=== PATIENT | male | born 1995 | race Two or more races ===

== ENCOUNTER 2023-05-22 20:43 | Emergency (ER) | payer OTHER ==
--- NOTE | 2023-05-22 21:56 | XRAY Report ---
PROCEDURE: Ankle 3 View RT INDICATIONS: ROLLED/PAIN/TENDERNESS/SWELLING R ANKLE TECHNIQUE: 3 views of the ankle were acquired. COMPARISON: None. FINDINGS: Bones: Small avulsion fracture fragment is seen adjacent to the lateral malleolus. Ankle mortise appe ars maintained. Soft tissues: Significant soft tissue swelling the anterolateral ankle. IMPRESSION: Small avulsion fracture fragment adjacent to lateral malleolus. Significant soft tissue swelling the anterolateral ankle, suggesting ligamentous injury. If there is high concern for further derangement, consider MRI evaluation. Reviewed by: Colin Hameed MD on 05/22/2023 9:55 PM PDT Approved by: Colin Hameed MD on 05/22/2023 9:55 PM PDT Station ID: [id number]
[2023-05-22] MEDS ORDERED: HYDROcod/ACETAM 5/325 MG TABLET PO STA (22:00)
[2023-05-22] MEDS ORDERED: HYDROcod/ACET 5/325 Prepack 4 PO STA (22:17)
--- NOTE | 2023-05-22 22:23 | ED Physician Documentation ---
History of Present Illness - Stated complaint Stated Complaint: R ANKLE INJ - Chief complaint Chief Complaint: Ext Problem - Additonal information Additional information: Patient 27-year-old male, with right ankle injury. Twisted ankle earlier today at work. DeniesPrevious injury to the same ankle. Review of Systems Constitutional: denies: Fever Eyes: denies: Loss of vision Ears: denies: Loss of hearing Nose: denies: Rhinorrhea / runny nose Throat: denies: Dental pain / toothache Cardiac: denies: Chest pain / pressure Respiratory: denies: Dyspnea GI: denies: Abdominal Pain : denies: Dysuria PD PAST MEDICAL HISTORY - Past Surgical History Past Surgical History: Yes HEENT: Other - Present Medications Home Medications: Ambulatory Orders Medication Instructions Recorded Confirmed Amoxicillin 2 tab PO DAILY #20 cap 05/13/23 HYDROcod/ACETAM 5/325 [[place] 5/325] 1 tab PO Q6HR #20 tab 05/22/23 - Allergies Allergies/Adverse Reactions: Allergies Allergy/AdvReac Type Severity Reaction Status Date / Time No Known Drug Allergies Allergy Verified 05/22/23 20:52 - Social History Does the pt smoke?: No Smoking Status: Never smoker Does the pt drink ETOH?: No Does the pt have substance abuse?: No - Immunizations Immunizations are current?: Yes - POLST Patient has POLST: No PD ED PE NORMAL - General General: Alert and oriented X 3 - HEENT HEENT: Atraumatic - Extremities Extremities: Other (Significant soft tissue swelling to the lateral aspect of the right ankle. DP PT pulses palpable. Normal capillary refill in the affected appendage.) Results - Vitals Vitals: Vital Signs - 24 hr 05/22/23 20:44 Temperature 37.1 C Heart Rate 73 Respiratory 18 Rate Blood Pressure 133/79 H O2 Saturation 99 Oxygen O2 Source Room air PD Medical Decision Making - ED course Complexity details: reviewed results, d/w patient ED course: Patient 27-year-old male with right ankle injury. Subsequently identified as having avulsion fracture to the right ankle. Neurovascularly intact here in the emergency department. Given medication for pain control. Splint placed. Provided with crutches. Provided with follow-up information for local area orthopedist or encouraged [place] Clear return precautions given. Departure - Departure Disposition: 01 Home, Self Care Clinical Impression: Avulsion fracture of lateral malleolus Qualifiers: Encounter type: initial encounter Fracture type: closed Laterality: right Qualified Code(s): S82.61XA - Displaced fracture of lateral malleolus of right fibula, initial encounter for closed fracture Instructions: ED Boot Aircast Walker, ED Fx Lower Ext Follow-Up: Toyn Cotton MD [Provider Admit Priv/Credential] - Prescriptions: HYDROcod/ACETAM /325 [[place] 5/325] 1 tab PO Q6HR #20 tab Comments: Thank you for allowing us to care for you today [facility]. Today in the emergency department you were diagnosed with a fracture to your right ankle. Specifically your diagnosis is an avulsion fracture to your right lateral malleolus. I like you to continue to use the splint and crutches provided here in the emergency department until cleared by orthopedics. I have written a prescription for narcotic pain medication, please use these only as directed. Please be aware that these medications are both sedating and habit-forming. They should not be used if you are operating motor vehicle, using of a machinery or the sole director of golf of young children. It is important for you to follow-up with an vocational services specialist. Attached is contact information for local area orthopedist. Alternatively please follow[place]. I strongly recommend regular use of ice packs as well as keeping your lower extremity elevated above the level of the heart. This is an excellent strategy to decrease swelling and thereby decrease pain. If it anytime you develop any new or worsening symptoms please not hesitate to return.
[2023-05-22 22:47] VITALS: BP 137/75; O2SAT 100
== END 2023-05-22 22:40 | disposition home or self-care (01) ==
LOC: ED 20:43
DX: S82.61XA Displaced fracture of lateral malleolus of right fibula, initial encounter for closed fracture (principal); X50.1XXA Overexertion from prolonged static or awkward postures, initial encounter; Y93.01 Activity, walking, marching and hiking; Y92.138 Other place on military base as the place of occurrence of the external cause; Y99.0 Civilian activity done for income or pay
CPT/HCPCS: 73610; 99283; A9270

== ENCOUNTER 2023-10-27 02:44 | Emergency (ER) | payer OTHER ==
[2023-10-27] MEDS: MAG HYDROX/AL HYDROX/SIMETH 30 ML UDC PO STA (03:31)
[2023-10-27] MEDS: DEXAMETHASONE 10 MG/ML VIAL IM STA (03:31)
[2023-10-27] MEDS: LIDOCAINE VISCOUS 2% 15 ML ORAL SYRINGE MM STA (03:31)
[2023-10-27 03:37] LABS: INFECTIOUS MONONUCLEOSIS NEGATIVE (Negative)
[2023-10-27] MEDS: KETOROLAC 60 MG/2 ML VIAL IM STA (03:37)
--- NOTE | 2023-10-27 03:57 | ED Physician Documentation ---
PD HPI HEENT - Stated complaint Stated Complaint: COUGH,SORE THROAT - Chief complaint Chief Complaint: Heent - History obtained from History obtained from: Patient - Additional information Additional information: The pt comes to the ED with CC of ST, rhinorrhea, cough with occasional sputum, and aches for the past 2 weeks. He has been seen at walk-in clinic with neg strep and covid tests. The pt denies any new or worsening sx, and just wants to make sure nothing else worse is wrong. No SOB. No CP. No abdominal sx. PD PAST MEDICAL HISTORY - Past Medical History Past Medical History: No - Past Surgical History Past Surgical History: Yes HEENT: Other - Present Medications Home Medications: Ambulatory Orders Medication Instructions Recorded Confirmed HYDROcod/ACETAM 5/325 [[place] 5/325] 1 - 2 tablet PO Q6H PRN #14 tablet 10/27/23 Polymyxin B/Trimeth Ophth Drop 1 drops EACHEYE DAILY 10/27/23 10/27/23 [Polytrim Ophth Drops] predniSONE [Deltasone] 60 mg PO DAILY 5 Days #15 tablet 10/27/23 - Allergies Allergies/Adverse Reactions: Allergies Allergy/AdvReac Type Severity Reaction Status Date / Time No Known Drug Allergies Allergy Verified 10/27/23 02:57 - Social History Does the pt smoke?: No Smoking Status: Never smoker Does the pt drink ETOH?: No Does the pt have substance abuse?: No - Immunizations Immunizations are current?: Yes - POLST Patient has POLST: No PD ED PE NORMAL - Vitals Vital signs reviewed: Yes - General General: Alert and oriented X 3, No acute distress, Well developed/nourished - HEENT HEENT: Atraumatic, PERRL, EOMI, Moist mucous membranes, Other (Clear rhinorrhea, congestion.) - Neck Neck: Supple, no meningeal sign - Cardiac Cardiac: RRR, No murmur - Respiratory Respiratory: No respiratory distress, Clear bilaterally - Abdomen Abdomen: Normal bowel sounds, Soft, Non tender, Non distended - Derm Derm: Normal color, Warm and dry, No rash - Extremities Extremities: No deformity, No edema - Neuro Neuro: Alert and oriented X 3 - Psych Psych: Normal mood, Normal affect Results - Vitals Vitals: Oxygen O2 Source Room air - Labs Labs: Laboratory Tests 10/27/23 10/27/23 03:05 03:25 Nasal Adenovirus (PCR) NOT DETECTED Nasal B. parapertussis DNA (PCR) NOT DETECTED Nasal Coronavir 229E PCR NOT DETECTED Nasal Coronavir HKU1 PCR NOT DETECTED Nasal Coronavir NL63 PCR NOT DETECTED Nasal Coronavir OC43 PCR NOT DETECTED Nasal Enterovir/Rhinovir PCR NOT DETECTED Nasal Influenza B PCR NOT DETECTED Nasal Influenza A PCR NOT DETECTED Nasal Parainfluen 1 PCR NOT DETECTED Nasal Parainfluen 2 PCR NOT DETECTED Nasal Parainfluen 3 PCR NOT DETECTED Nasal Parainfluen 4 PCR NOT DETECTED Nasal RSV (PCR) NOT DETECTED Nasal B.pertussis DNA PCR NOT DETECTED Nasal C.pneumoniae (PCR) NOT DETECTED Andrez Human Metapneumo PCR NOT DETECTED Nasal M.pneumoniae (PCR) NOT DETECTED Nasal SARS-CoV-2 (PCR) NOT DETECTED Infectious Obion Assay NEGATIVE PD Medical Decision Making - ED course Complexity details: reviewed results, re-evaluated patient, considered differential, d/w patient ED course: The pt was worked up with mono test and resp PCR panel, both of which were negative. I d/w him that he most likely has picked up one of the many other viruses going around, but there is no sign of bacterial infection or other serious illness, and I expect this to pass on its own without incident. We have discussed symptomatic management at home, as well as the usual indications for return. Departure - Departure Disposition: 01 Home, Self Care Clinical Impression: Upper respiratory tract infection Qualifiers: URI type: unspecified viral URI Qualified Code(s): J06.9 - Acute upper respiratory infection, unspecified Condition: Stable Instructions: ED Viral Syndrome Prescriptions: predniSONE [Deltasone] 60 mg PO DAILY 5 Days #15 tablet HYDROcod/ACETAM 5/325 [[place] 5/325] 1 - 2 tablet PO Q6H PRN #14 tablet PRN Reason: Pain Comments: Your monotest was negative. You have already tested negative for strep. Your viral panel is pending at this time and often takes a few hours to come back. As such, we will let you go home but we will call you if there are any significant positive results. If you would like to check for your own results, you may also go to our hospital website at [email or web address], click on the "my [facility]" tab and sent for the patient portal. In this way you can look up your own results as well. You must certainly have when the many viruses that are going around right now and may have caught 2 viruses [id number] to extend the length of your illness. Ultimately, viral illnesses do go away on their own and ultimately, your body will get rid of the sickness and you will get better. In general, viral illnesses last anywhere from a few days to a couple of weeks. You may use ibuprofen and Tylenol as needed for discomforts. I have also prescribed a steroid course and a course of pain medication as needed for your headache and sore throat. If you take the pain medicine that has been prescribed, please make sure you separate it out from any doses of Tylenol by at least 4 hours, as the prescribed medicine also contains some T ylenol.A note has been provided for work for you. As far as your eyes, you should continue the drops that have been prescribed. Your prescriptions have been electronically transmitted to the [facility] pharmacy in [place]. Please pick them up later this morning to have on hand. Please also be sure that you drink plenty of water to help yourself stay hydrated. Forms: PCP List, Activity restrictions Discharge Date/Time: 10/27/23 04:17
[2023-10-27 04:03] LABS: B. PARAPERTUSSIS- RESP PCR PAN NOT DETECTED; B. PERTUSSIS- RESP PCR PANEL NOT DETECTED; C. PNEUMONIAE- RESP PCR PANEL NOT DETECTED; CORONAVIRUS 229E-RESP PCR NOT DETECTED; CORONAVIRUS HKU1-RESP PCR NOT DETECTED; CORONAVIRUS NL63-RESP PCR NOT DETECTED; CORONAVIRUS OC43-RESP PCR NOT DETECTED; HUMAN METAPNEUMOVIRUS NOT DETECTED; INFLUENZA A- RESP PCR PANEL NOT DETECTED; INFLUENZA B - RESP PCR PANEL NOT DETECTED; M. PNEUMONIAE- RESP PCR PANEL NOT DETECTED; PARAINFLUENZA VIRUS 1 NOT DETECTED; PARAINFLUENZA VIRUS 2 NOT DETECTED; PARAINFLUENZA VIRUS 3 NOT DETECTED; PARAINFLUENZA VIRUS 4 NOT DETECTED; RHINOVIRUS/ENTEROVIRUS NOT DETECTED; RSV- RESP PCR PANEL NOT DETECTED; SARS-CoV-2 -RESP PCR PANEL NOT DETECTED
[2023-10-27 04:26] VITALS: BP 130/81; O2SAT 100
== END 2023-10-27 04:17 | disposition home or self-care (01) ==
LOC: ED 02:44
DX: J06.9 Acute upper respiratory infection, unspecified (principal)
CPT/HCPCS: 86308; 87633; 96372; 99283; A9270

== ENCOUNTER 2024-01-06 12:15 | Outpatient (CLI) | payer OTHER ==
--- NOTE | 2024-01-07 00:09 | XRAY Report ---
PROCEDURE: Lumbar Spine 2-3V INDICATIONS: STRAIN OF MUSCLE, FASCIA AND TENDON OF LOWER BACK TECHNIQUE: 3 view(s) of the lumbar spine were acquired. COMPARISON: None. FINDINGS: Bones: Vertebral body height and alignment is maintained. No suspicious bony lesions. Soft tissues: Overlying bowel gas pattern is normal. No suspicious soft tissue calcifications. IMPRESSION: Unremarkable lumbar spine radiographs Reviewed by: Deepak Miller MD on 01/06/2024 11:08 PM [email or web address] Approved by: Deepak Miller MD on 01/06/2024 11:08 PM AKDT Station ID: [id number]
== END 2024-01-06 12:30 | disposition home or self-care (01) ==
LOC: DI.N 12:15
PROVIDERS: ATTEND Nurse Practitioner
DX: S39.012A Strain of muscle, fascia and tendon of lower back, initial encounter (principal)

== ENCOUNTER 2025-05-28 03:32 | Inpatient (IN) ==
[2025-05-28] MEDS: KETOROLAC 30 MG/ML VIAL IVP STA (03:54)
--- NOTE | 2025-05-28 03:56 | ED Physician Documentation ---
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 He indicates he was at work when he began to experience cramping abdominal pain in the lower portion of his abdomen the pain became severe and the patient called 911. He is given 50 mics of fentanyl and route to the hospital. He has had a similar episode of pain not as bad as this about 2 weeks ago. He was seen at [facility] then and diagnosed with constipation. He states that he took some laxative and stool softener and had improvement.He is complaining of pain going over bumps in the ambulance and with movement. He has poor localization of the pain with shifting of the pain. Currently his pain is epigastric. It has been in the right lower quadrant right upper quadrant and now epigastric. Tod Coma Scale Assess Eye opening: Spontaneous Verbal response: Oriented Motor response: Obeys Commands Total score: 15 Review of Systems Patient denies any fever chills sweats cough sputum production or change in his urination. He has not had a bowel movement in 2 days. Meds/Allgy Home Medications Ambulatory Orders Medication Instructions Recorded Confirmed No Known Home Medications 11/28/2405/18 Allergies Allergies Allergy/AdvReac Type Severity Reaction Status Date / Time No Known Drug Allergies Allergy Verified 05/28/25 03:44 PFSH Active Problems All Active Problems (Updated 05/28/25 @ 08:18 by Heriberto Fung MD) Constipation (Chronic) Abdominal pain (Acute) Intestinal malrotation (Acute) Medical History Medical History (Updated 05/28/25 @ 08:18 by Heriberto Fung MD) Cyst in neck at removed 04/13/25 Surgical History Surgical History (Updated 05/28/25 @ 08:12 by Trev Ventura RN) Hx of tonsillectomy Hx of tonsillectomy Social History Social History Do you vape?: No Do you feel safe in your home environment?: Yes History of physical, verbal, emotional, or financial abuse?: No POLST Patient has POLST: No Exam Exam Vital Signs: Vital Signs x48h Temp Pulse Resp BP Pulse Ox 05/28/25 07:45 72 149/85 H 99 05/28/25 05:44 57 L 131/86 H 98 05/28/25 03:32 36.6 C 79 18 146/89 H 100 29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 During the initial evaluation the patient begins to have some improvement in his pain. Vital signs show hypertension with a blood pressure 146/89 the remainder of the vital signs are normal. Constitutional average body habitus, no limitations and alert 29-year-old male who appears to be in pain HENMT normocephalic and head/scalp atraumatic Eyes PERRL and EOMs intact bilaterally Neck/C-Spine visual inspection normal and trachea midline Respiratory breath sounds equal bilaterally, normal respiratory effort and clear to auscultation bilaterally Cardiovascular normal heart rate noted, regular rhythm noted and no murmur Gastrointestinal There is diffuse tenderness to the abdomen with poor localization. Deep palpation in the right lower quadrant without specific findings right upper quadrant with acute findings that resolved. 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 instructor II-XII intact, no movement abnormality noted and no focal motor deficit noted Psychiatry mental status grossly normal and oriented x3 Skin skin color normal and no rash Results Vitals Vitals: Vital Signs - 24 hr 05/28/25 03:32 05/28/25 03:54 05/28/25 04:34 Temperature 36.6 C Temperature Source Temporal Artery Scan Pulse Rate 79 Respiratory Rate 18 Blood Pressure 146/89 H O2 Saturation 100 O2 Source Room air Pain Intensity 8 10 8 05/28/25 05:44 05/28/25 06:33 05/28/25 06:54 Temperature Temperature Source Pulse Rate 57 L Respiratory Rate Blood Pressure 131/86 H O2 Saturation 98 O2 Source Room air Pain Intensity 0 0 8 05/28/25 07:45 05/28/25 07:47 Temperature Temperature Source Pulse Rate 72 Respiratory Rate Blood Pressure 149/85 H O2 Saturation 99 O2 Source Room air Pain Intensity 5 5 Oxygen O2 Source Room air Labs Labs: Laboratory Tests 05/28/25 05/28/25 03:55 06:46 WBC 7.0 RBC 5.29 Hgb 15.4 Hct 46.0 MCV 87.0 MCH 29.1 MCHC 33.5 RDW 12.4 Plt Count 182 MPV 11.2 Neut # (Auto) 3.9 Lymph # (Auto) 2.6 Nye # (Auto) 0.4 Eos # (Auto) 0.1 Baso # (Auto) 0.0 Absolute Nucleated RBC 0.00 Nucleated RBC % 0.0 Sodium 138 Potassium 3.0 L Chloride 106 Carbon Dioxide 18 L Anion Gap 14.0 H BUN 9 Creatinine 1.0 Estimated GFR (MDRD) 90 Glucose 134 H Lactic Acid 0.9 Calcium 9.6 Total Bilirubin 0.7 AST 14 ALT 9 L Alkaline Phosphatase 71 Total Protein 7.8 Albumin 4.5 Globulin 3.3 Albumin/Globulin Ratio 1.4 Lipase 16 Procedures Bedside sono Bedside sono by EMP: With use of POCUS the gallbladder is imaged there are no obvious shadowing stone s the gallbladder area is mildly tender to sonographic palpation at the time of examination the patient indicates his pain is waning. Examination of both kidneys is without evidence of hydronephrosis and they are sonographically nontender PD Medical Decision Making ED course Complexity details: reviewed old records, reviewed results, re-evaluated patient, considered differential and d/w patient Reviewed Lab Results: We reviewed complete blood count showing a normal white blood cell count normal hemoglobin hematocrit and platelets normal differential normal indices chemistries show a serum potassium low at 3.0 kidney and liver function are otherwise normal. These laboratory studies do not contribute to a specific diagnosis other than hypokalemia. Unrelated to the patient's abdominal pain. ED course: Lloyd Cooper presented to our emergency department with severe abdominal pain. He did get some relief with the use of Toradol but this was short-lived and he eventually was given a dose of Dilaudid which resolved his pain. He has had a prior episode of pain not as bad as this and he was evaluated at [facility] with a diagnosis of constipation. At that time he had had an issue with bleeding. Tonight he presents with severe pain and CT scan is concerning for interstitial malrotation. I am not familiar with this condition but it can lead to volvulus and I have contacted our surgeon here regarding the management of this now asymptomatic patient.The patient's symptoms return and he is given additional Dilaudid. Our surgeon Dr. Ene Silva is consulted in the case comes to the emergency department evaluate the patient and makes a plan for admission of the patient to the hospital with a small bowel follow-through and potential surgical intervention. Discharge Plan Discharge Patient Disposition: 66 [facility] DC/Xfer Condition: Fair Clinical Impression: Intestinal malrotation Abdominal pain Qualifiers: Abdominal location: multiple sites Qualified Code(s): R10.85 - Abdominal pain of multiple sites Constipation Qualifiers: Constipation type: unspecified constipation type Qualified Code(s): K59.00 - Constipation, unspecified Prescriptions: No Action No Known Home Medications Print Language: [place]i
[2025-05-28 04:00] LABS: HCT - HEMATOCRIT 46.0 % (42.0-52.0); HGB - HEMOGLOBIN 15.4 g/dL (14.0-18.0); MEAN PLATELET VOLUME 11.2 fL (7.4-11.4); NRBC ABSOLUTE COUNT (AUTO) 0.00 x10^3/uL; NUCLEATED RED BLOOD CELLS AUTO 0.0 /100WBC; PLT - PLATELET COUNT 182 10^3/uL (130-450); RED CELL DISTRIBUTION WIDTH 12.4 % (12.0-15.0)
[2025-05-28 04:19] LABS: ALT ALANINE AMINOTRANSFERASE 9.0 IU/L (10-60); AST ASPARTATE AMINOTRANSFERASE 14.0 IU/L (10-42); BUN - BLOOD UREA NITROGEN 9.0 mg/dL (6-20); CARBON DIOXIDE - CO2 18.0 mmol/L (21-32); CREATININE 1.0 mg/dL (0.6-1.3); GFR - MDRD 90.0 (>89)
--- OUTSIDE RECORDS SUMMARY | 2025-05-28 04:25 | EXTERNAL MEDICAL SUMMARY RPT | Continuity of Care Document ---
Author Organization [facility] Address [address] [place] [id number] Phone Care Team Providers Care Corporate Librarian Name Role Phone Unavailable Unavailable [email or web address] Unavailable Unavailable Problems date description facility 2025-05-11 00:00 [facility] Procedures date description facility 2025-05-11 00:00 CT abdomen pelvis w con [facility] Results/Labs test date facility value unit notes Result panel 1 Specimen collection (procedure) (no date) [facility] (missing) (missing) (missing) Result panel 2 Specimen collection (procedure) (no date) [facility] (missing) (missing) (missing) Result panel 3 Specimen collection (procedure) (no date) [facility] (missing) (missing) (missing) Result panel 4 Specimen collection (procedure) (no date) [facility] (missing) (missing) (missing) Result panel 5 Specimen collection (procedure) (no date) [facility] (missing) (missing) (missing) Result panel 6 Specimen collection (procedure) (no date) [facility] (missing) (missing) (missing) Result panel 7 Specimen collection (procedure) (no date) [facility] (missing) (missing) (missing) Result panel 8 Specimen collection (procedure) (no date) [facility] (missing) (missing) (missing) Result panel 9 Specimen collection (procedure) (no date) [facility] (missing) (missing) (missing) Result panel 10 Specimen collection (procedure) (no date) [facility] (missing) (missing) (missing) Result panel 11 Specimen collection (procedure) (no date) [facility] (missing) (missing) (missing) Result panel 12 Specimen collection (procedure) (no date) [facility] (missing) (missing) (missing) Result panel 13 Specimen collection (procedure) (no date) [facility] (missing) (missing) (missing) Result panel 14 Specimen collection (procedure) (no date) [facility] (missing) (missing) (missing) Result panel 15 Specimen collection (procedure) (no date) [facility] (missing) (missing) (missing) Result panel 16 Specimen collection (procedure) (no date) [facility] (missing) (missing) (missing) Result panel 17 Specimen collection (procedure) (no date) [facility] (missing) (missing) (missing) Result panel 18 Specimen collection (procedure) (no date) [facility] (missing) (missing) (missing) Result panel 19 Specimen collection (procedure) (no date) [facility] (missing) (missing) (missing) Result panel 20 Specimen collection (procedure) (no date) [facility] (missing) (missing) (missing) Result panel 21 Specimen collection (procedure) (no date) [facility] (missing) (missing) (missing) Result panel 22 Specimen collection (procedure) (no date) [facility] (missing) (missing) (missing) Result panel 23 Specimen collection (procedure) (no date) [facility] (missing) (missing) (missing) Result panel 24 Specimen collection (procedure) (no date) [facility] (missing) (missing) (missing) Result panel 25 Specimen collection (procedure) (no date) [facility] (missing) (missing) (missing) Result panel 26 Specimen collection (procedure) (no date) [facility] (missing) (missing) (missing) Result panel 27 Specimen collection (procedure) (no date) [facility] (missing) (missing) (missing) Result panel 28 Specimen collection (procedure) (no date) [facility] (missing) (missing) (missing) Result panel 29 Specimen collection (procedure) (no date) [facility] (missing) (missing) (missing) Result panel 30 Specimen collection (procedure) (no date) [facility] (missing) (missing) (missing) Result panel 31 Specimen collection (procedure) (no date) [facility] (missing) (missing) (missing) Result panel 32 Specimen collection (procedure) (no date) [facility] (missing) (missing) (missing) Result panel 33 Specimen collection (procedure) (no date) [facility] (missing) (missing) (missing) Result panel 34 Specimen collection (procedure) (no date) [facility] (missing) (missing) (missing) Result panel 35 Specimen collection (procedure) (no date) [facility] (missing) (missing) (missing) Result panel 36 Specimen collection (procedure) (no date) [facility] (missing) (missing) (missing) Result panel 37 Specimen collection (procedure) (no date) [facility] (missing) (missing) (missing) Result panel 38 Specimen collection (procedure) (no date) [facility] (missing) (missing) (missing) Result panel 39 Specimen collection (procedure) (no date) [facility] (missing) (missing) (missing) Result panel 40 Specimen collection (procedure) (no date) [facility] (missing) (missing) (missing) Result panel 41 Specimen collection (procedure) (no date) [facility] (missing) (missing) (missing) Result panel 42 Specimen collection (procedure) (no date) [facility] (missing) (missing) (missing) Result panel 43 Specimen collection (procedure) (no date) [facility] (missing) (missing) (missing) Result panel 44 Specimen collection (procedure) (no date) [facility] (missing) (missing) (missing) Result panel 45 Specimen collection (procedure) (no date) [facility] (missing) (missing) (missing) Result panel 46 Specimen collection (procedure) (no date) [facility] (missing) (missing) (missing) Result panel 47 Specimen collection (procedure) (no date) [facility] (missing) (missing) (missing) Result panel 48 Specimen collection (procedure) (no date) [facility] (missing) (missing) (missing) Result panel 49 Specimen collection (procedure) (no date) [facility] (missing) (missing) (missing) Result panel 50 Specimen collection (procedure) (no date) [facility] (missing) (missing) (missing) Result panel 51 Specimen collection (procedure) (no date) [facility] (missing) (missing) (missing) Result panel 52 Specimen collection (procedure) (no date) [facility] (missing) (missing) (missing) Result panel 53 Specimen collection (procedure) (no date) [facility] (missing) (missing) (missing) Result panel 54 Specimen collection (procedure) (no date) [facility] (missing) (missing) (missing) Result panel 55 Specimen collection (procedure) (no date) [facility] (missing) (missing) (missing) Result panel 56 Specimen collection (procedure) (no date) [facility] (missing) (missing) (missing) Result panel 57 Specimen collection (procedure) (no date) [facility] (missing) (missing) (missing) Result panel 58 Specimen collection (procedure) (no date) [facility] (missing) (missing) (missing) Result panel 59 Specimen collection (procedure) (no date) [facility] (missing) (missing) (missing) Result panel 60 Specimen collection (procedure) (no date) [facility] (missing) (missing) (missing) Result panel 61 Specimen collection (procedure) (no date) [facility] (missing) (missing) (missing) Result panel 62 Specimen collection (procedure) (no date) [facility] (missing) (missing) (missing) Result panel 63 Specimen collection (procedure) (no date) [facility] (missing) (missing) (missing) Result panel 64 Specimen collection (procedure) (no date) [facility] (missing) (missing) (missing) Result panel 65 Specimen collection (procedure) (no date) [facility] (missing) (missing) (missing) Result panel 66 Specimen collection (procedure) (no date) [facility] (missing) (missing) (missing) Result panel 67 Specimen collection (procedure) (no date) [facility] (missing) (missing) (missing) Result panel 68 Specimen collection (procedure) (no date) [facility] (missing) (missing) (missing) Result panel 69 Specimen collection (procedure) (no date) [facility] (missing) (missing) (missing) Result panel 70 Specimen collection (procedure) (no date) [facility] (missing) (missing) (missing) Result panel 71 Specimen collection (procedure) (no date) [facility] (missing) (missing) (missing) Result panel 72 Specimen collection (procedure) (no date) [facility] (missing) (missing) (missing) Result panel 73 Specimen collection (procedure) (no date) [facility] (missing) (missing) (missing) Result panel 74 Specimen collection (procedure) (no date) [facility] (missing) (missing) (missing) Result panel 75 Specimen collection (procedure) (no date) [facility] (missing) (missing) (missing) Result panel 76 Specimen collection (procedure) (no date) [facility] (missing) (missing) (missing) Result panel 77 Specimen collection (procedure) (no date) [facility] (missing) (missing) (missing) Result panel 78 Specimen collection (procedure) (no date) [facility] (missing) (missing) (missing) Result panel 79 Chloride [Moles/volume] in Serum or Plasma 2025-05-11 09:50:07 [facility] 103 mmol/L ( issing) Result panel 80 Carbon dioxide, total [Moles/volume] in Serum or Plasma 2025-05-11 09:50:07 [facility] 25 mmol/L ([facility]) Result panel 81 Urea nitrogen [Mass/volume] in Serum or Plasma 2025-05-11 09:50:07 [facility] 16 mg/dL ([facility]) Result panel 82 Creatinine [Mass/volume] in Serum or Plasma 2025-05-11 09:50:07 [facility] 1.03 mg/dL ([facility]) Result panel 83 Glomerular filtration rate (GFR) estimation 2025-05-11 09:50:07 [facility] > 60 mL/min (missing) (missing) Result panel 84 BUN/creatinine ratio 2025-05-11 09:50:07 [facility] 15. 5 (missing) (missing) Result panel 85 Glucose [Mass/volume] in Serum or Plasma 2025-05-11 09:50:07 [facility] 121 mg/dL ([facility]) Result panel 86 Calcium [Mass/volume] in Serum or Plasma 2025-05-11 09:50:07 [facility] 9.2 mg/dL ([facility]) Result panel 87 Bilirubin.total [Mass/volume ] in Serum or Plasma 2025-05-11 09:50:07 [facility] 1.1 mg/dL (missing) Result panel 88 Aspartate aminotransferase [Enzymatic activity/volume] in Serum or Plasma 2025-05-11 09:50:07 [facility] 27 IU/L ([facility]) Result panel 89 Alanine aminotransferase [Enzymatic activity/volume] in Serum or Plasma 2025-05-11 09:50:07 [facility] 18 IU/L ([facility]) Result panel 90 Alkaline phosphatase [Enzyma tic activity/volume] in Serum or Plasma 2025-05-11 09:50:07 [facility] 70 U/L ([facility]) Result panel 91 Protein total ser/plas 2025-05-11 09:50:07 [facility] 8 .6 g/dL (missing) Result panel 92 Albumin [Mass/volume] in Ser um or Plasma 2025-05-11 09:50:07 [facility] 4.8 g/dL ([facility] ing) Result panel 93 Globulin [Mass/volume] in Serum by calculation 2025-05-11 09:50:07 [facility] 3.8 g/dL (missing) Result panel 94 Albumin/Globulin [Mass Ratio] in Serum or Plasma 2025-05-11 09:50:07 [facility] 1.3 ([facility]) (missing) Result panel 95 Lipase [Enzymatic activity/volume] in Serum or Plasma 2025-05-11 09:50:07 [facility] 48 U/L ([facility]) Result panel 96 White blood cell count 2025-05-11 09:50:07 [facility] 8 .2 X10^3/uL (missing) Result panel 97 Red blood cell count 2025-05-11 09:50:07 [facility] 5.1 6 X10^6/uL (missing) Result panel 98 Hemoglobin 2025-05-11 09:50:07 [facility] 15.2 g/d L (missing) Result panel 99 Hematocrit 2025-05-11 09:50:07 [facility] 44.5 % (missing) Result panel 100 MCV (mean corpuscular volume ) determination 2025-05-11 09:50:07 [facility] 86.2 fL (mis sing) Result panel 101 Mean corpuscular hemoglobin (MCH) determination 2025-05-11 09:50:07 [facility] 29.5 PG (missing) Result panel 102 Mean corpuscular hemoglobin concentration (MCHC) determination 2025-05-11 09:50:07 [facility] 34.3 % (mis sing) Result panel 103 Red cell distribution width determination 2025-05-11 09:50:07 [facility] 13.3 % (mis sing) Result panel 104 Platelet count 2025-05-11 09:50:07 [facility] 174 X10^3/uL (missing) Result panel 105 Automated neutrophil % 2025-05-11 09:50:07 [facility] 7 1.9 % (missing) Result panel 106 Automated lymphocyte % 2025-05-11 09:50:07 [facility] 2 1.7 % (missing) Result panel 107 Automated monocyte % 2025-05-11 09:50:07 [facility] 5.5 % (missing) Result panel 108 Automated eosinophil % 2025-05-11 09:50:07 [facility] 0 .5 % (missing) Result panel 109 Automated basophil % 2025-05-11 09:50:07 [facility] 0.4 % (missing) Result panel 110 Absolute neutrophil [facility]25-[facility]-11 [facility] Result panel 111 Absolute lymphocyte count 2025-05-11 09:50:07 [facility] 1800 /uL (missing) Result panel 112 Automated blood monocyte count 2025-05-11 09:50:07 [facility] 400 /uL (missing) Result panel 113 Automated eosinophil count 2025-05-11 09:50[facility]07 [facility] Result panel 114 Automated basophil count 2025-05-11 09:50:07 [facility] 0 /uL (missing) Result panel 115 Sodium [Moles/volume] in Serum or Plasma 2025-05-11 09:50:07 [facility] 140 mmol/L ([facility]) Result panel 116 Potassium [Moles/volume] in Serum or Plasma 2025-05-11 09:50:07 [facility] 3.7 mmol/L ([facility]) Result panel 117 CAT scan report 2025-05-11 10:08 [facility] (missing) ( missing) (missing) Result panel 118 Basophils Absolute Auto 2025-05-11 10:[address] [place] [address] 0 /ul (missing) Eosinophils Absolute Auto 2025-05-11 10:[address] [place] [address] 0 /ul (missing) Basophils Percent Auto 2025-05-11 10:[address] [place] [address] 0.4 % (missing) Eosinophils Percent Auto 2025-05-11 10:[address] [place] [address] 0. 5 % (missing) Red Cell Distribution Width 2025-05-11 10:[address] [place] [address] 13.3 % (missing) Hemoglobin 2025-05-11 10:[address] [place] [address] 15.2 g/dl (missing) Platelet Count 2025-05-11 10:[address] [place] [address] 174 x1 0 3/ul (missing) Lymphocytes Absolute Auto 2025-05-11 10:[address] [place] [address] 1 800 /ul (missing) Lymphocytes Percent Auto 2025-05-11 10:[address] [place] [address] 21 .7 % (missing) Mean Corpuscular Hemoglobin 2025-05-11 10:[address] [place] [address] 29.5 pg (missing) Mean Corpuscular HGB Conc 2025-05-11 10:[address] [place] [address] 3 4.3 % (missing) Monocytes Absolute Auto 2025-05-11 10:[address] [place] [address] 400 /ul (missing) Hematocrit 2025-05-11 10:[address] [place] [address] 44.5 % (missing) Red Blood Cell Count 2025-05-11 10:[address] [place] [address] 5.16 x10 6/ul (missing) Monocytes Percent Auto 2025-05-11 10:[address] [place] [address] 5.5 % (missing) Neutrophils Absolute Auto 2025-05-11 10:[address] [place] [address] 5 900 /ul (missing) Neutrophils Percent Auto 2025-05-11 10:[address] [place] [address] 71 .9 % (missing) White Blood Cell Count 2025-05-11 10:[address] [place] [address] 8.2 x10 3/ul (missing) Mean Corpuscular Volume 2025-05-11 10:[address] [place] [address] 86. 2 fl (missing) Result panel 119 Estimated Glomerular Filt Rate 2025-05-11 10:[address] [place] [address] > 60 ml/min Reported eGFR is based the CKD-EPI 2020 equation that does not use a race coefficient. An eGFR below 60 mL/min/1.73m2 suggests that some kidney damage has occurred, and indicative of chronic kidney disease if persisting greater than 3 months. An eGFR less than 15 is indicative of kidney failure. Creatinine 2025-05-11 10:[address] [place] [address] 1.03 mg/dl (missing) Bilirubin Total 2025-05-11 10:[address] [place] [address] 1.1 mg/dl (missing) Albumin Globulin Ratio 2025-05-11 10:[address] [place] [address] 1.3 (missing) (missing) Chloride 2025-05-11 10:[address] [place] [address] 103 mmol/l (missing) Glucose 2025-05-11 10:[address] [place] [address] 121 mg/dl (missing) Sodium 2025-05-11 10:[address] [place] [address] 140 mmol/l (missing) BUN Creatinine Ratio 2025-05-11 :[address] [place] [address] 15.5 (missing) (missing) Blood Urea Nitrogen 2025-05-11 10:[address] [place] [address] 16 mg/dl (missing) Alanine Aminotransferase 2025-05-11 10:[address] [place] [address] 18 iu/l (missing) Carbon Dioxide 2025-05-11 10:[address] [place] [address] 25 mmol/l (missing) Aspartate Aminotransferase 2025-05-11 10:[address] [place] [address] 27 iu/l (missing) Potassium 2025-05-11 10:[address] [place] [address] 3.7 mmol/l (missing) Globulin 2025-05-11 10:[address] [place] [address] 3.8 g/dl (missing) Albumin 2025-05-11 10:[address] [place] [address] 4.8 g/dl (missing) Lipase 2025-05-11 10:35 [facility] 48 u/l (missing) Alkaline Phosphatase 2025-05-11 10:35 [facility] 70 u/l (missing) Total Protein 2025-05-11 10:35 [facility] 8.6 g/dl (missing) Calcium 2025-05-11 10:35 [facility] 9.2 mg/dl (missing) Result panel 120 Antibody Screen 2025-05-11 11:02 [facility] NEGATIVE ( missing) (missing) Blood Type 2025-05-11 11:02 [facility] O Positive (miss ing) (missing) Result panel 121 NUCLEATED RED BLOOD CELLS AUTO 2025-05-28 03:55 [facility] 0.0 /100wbc (missing ) BASOPHILS # (AUTO) 2025-05-28 03:[address] [place] [address] 0.0 10 3/ul (missing) NRBC ABSOLUTE COUNT (AUTO) 2025-05-28 03:[address] [place] [address] 0.00 x10 3/ul (missing) EOSINOPHILS # (AUTO) 2025-05-28 03:[address] [place] [address] 0.1 10 3/ul (missing) MONOCYTES # (AUTO) 2025-05-28 03:[address] [place] [address] 0.4 10 3/ul (missing) MEAN PLATELET VOLUME 2025-05-28 03:[address] [place] [address] 11.2 fl (missing) RED CELL DISTRIBUTION WIDTH 2025-05-28 03:[address] [place] [address] 12.4 % (missing) HGB - HEMOGLOBIN 2025-05-28 03:[address] [place] [address] 15.4 g/dl (missing) PLT - PLATELET COUNT 2025-05-28 03:[address] [place] [address] 182 10 3/ul (missing) LYMPHOCYTES # (AUTO) 2025-05-28 03:[address] [place] [address] 2.6 10 3/ul (missing) MEAN CORPUSCULAR HEMOGLOBIN 2025-05-28 03:[address] [place] [address] 29.1 pg (missing) NEUTROPHILS # (AUTO) 2025-05-28 03:[address] [place] [address] 3.9 10 3/ul (missing) MEAN CORPUSCULAR HGB CONC 2025-05-28 03:[address] [place] [address] 3 3.5 g/dl (missing) HCT - HEMATOCRIT 2025-05-28 03:[address] [place] [address] 46.0 % (missing) RED BLOOD COUNT 2025-05-28 03:[address] [place] [address] 5.29 1 0 6/ul (missing) WHITE BLOOD COUNT 2025-05-28 03:55 [facility] 7.0 x10 3/ul (missing) MEAN CORPUSCULAR VOLUME 2025-05-28 03:55 [facility] 87. 0 fl (missing) Social History date description facility Vital Signs date measurement value units 2025-05-11 00:00 BMI 26.2 kg/m2 2025-05-11 00:00 BP_diastolic 72 mmHg 2025-05-11 00:00 BP_systolic 111 mmHg 2025-05-11 00:00 heart_rate 77 /min 2025-05-11 00:00 height_metric 190.5 cm 2025-05-11 00:00 o2_saturation 100 % 2025-05-11 00:00 respiration_rate 16 /min 2025-05-11 00:00 temperature_standard 98.6 F 2025-05-11 00:00 weight_metric 95.25 kg
[2025-05-28] MEDS: HYDROmorphone 1 MG/ML CARPUJECT IVP STA ×2 (04:34→06:54)
[2025-05-28] MEDS: ONDANSETRON 4 MG/2 ML VIAL IVP STA (04:34)
[2025-05-28] MEDS: POTASSIUM CHLOR 10 MEQ/100 ML 10 MEQ/100 ML BAG IV STA (06:34)
--- NOTE | 2025-05-28 08:49 | CT Report ---
PROCEDURE: CT Abdomen/Pelvis W INDICATIONS: abdominal pain severe poor localization no hydro CONTRAST: 100 ML OMNI 300 TECHNIQUE: After the administration of intravenous contrast, a CT scan of the abdomen and pelvis was performed. Images were recorded and evaluated at appropriate window settings. Reformats: coronal and sagittal. For radiation dose reduction, the following was used: automated exposure control, adjustment of mA and/or kV according to patient size. COMPARISON: None. FINDINGS: Image quality: Diagnostic. Lower chest: Unremarkable. Liver: No solid mass. Gallbladder: Unremarkable Biliary tree: No intrahepatic or extrahepatic dilation, accounting for age. Spleen: No splenomegaly. Pancreas: No pancreatic ductal dilation. Adrenals: No adrenal nodule. Kidneys and ureters: No hydronephrosis. No renal cystic lesion which requires follow up. No solid mass. Stomach, bowel and peritoneum: No gastric or small bowel dilation. No abnormal wall thickening. No pathologic free fluid. 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 Appendix is normal. Lymph nodes: No central or retroperitoneal adenopathy. Vessels: No infrarenal aortic aneurysm. Patent portal vein. PELVIS Reproductive organs: Unremarkable. Bladder: No abnormal wall thickening. Pelvic lymph nodes: No pelvic adenopathy by size criteria. Bones: No aggressive osseous abnormality. Other: No significant ventral or inguinal hernia. IMPRESSION: No visualized acute intra-abdominal or pelvic process. The above findings are concordant with preliminary report. Reviewed by: Bing Boo MD on 05/28/2025 8:46 AM PDT Approved by: Bing Boo MD on 05/28/2025 8:46 AM PDT Station ID: [id number]
[2025-05-28] MEDS: LACTATED RINGERS 1,000 ML IV SCH (09:34)
[2025-05-28] MEDS ORDERED: ONDANSETRON 4 MG/2 ML VIAL IVP PRN (09:57)
[2025-05-28] MEDS ORDERED: ACETAMINOPHEN 325 MG TABLET PO PRN (09:57)
[2025-05-28] MEDS ORDERED: KETOROLAC 15 MG/ML VIAL IVP PRN (09:58)
--- NOTE | 2025-05-28 10:13 | HISTORY & PHYSICAL EXAMINATION ---
Chief Complaint Chief Complaint Chief Complaint: I'm having abdominal cramps. History of Present Illness Admitted From Admitted From:: ED History Obtained From Records Reviewed: yes (as available) History obtained from: patient, ED provider, chart History of Present Illness HPI Comment/Other: Lloyd Cooper is a 29 y/o M. 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 He reports acute onset crampy abdominal pain which moves around is abdomen and began at 0130 this morning, while he was at work. The pain became severe and was associated with nausea but no vomiting, prompting the patient to call 911. He received 50 mcg of fentanyl en route to the hospital, and additional narcotics in the ED which controlled his pain. He reports a similar episode of pain about 2 weeks ago at which time he was seen at [facility] and diagnosed with constipation. He states that he took some laxative and stool softener and had improvement of symptioms; he has not continued on a bowel regimen. Workup in the ED reveals moderate constipation and malrotation which is incidental in nature. For this, I am consulted. At the time of my exam, the patient is resting comfortably, aside from some pain in his IV arm with infusion of potassium. He states he has some mild abdominal discomfort, rated 4/10. It is mostly about the right mid abdomen at this moment but patient endorses that pain has moved around during the time it has been present. Prior to two weeks ago, he has never had pain like this. He has no prior abdominal surgeries. Colonoscopy Questionnaire In the last 30 days have you experienced these symptoms? PFSH Active Problems All Active Problems (Updated 05/28/25 @ 10:17 by Elma Bashir MD) Constipation (Chronic) Abdominal pain (Acute) Intestinal malrotation (Acute) Surgical History Surgical History (Updated 05/28/25 @ 10:17 by Elma Bashir MD) H/O thyroglossal duct cyst excised on above date Hx of tonsillectomy Family History Family History (Updated 05/28/25 @ 10:17 by Elma Bashir MD) Maternal grandmother Cancer Social History Social History (Updated 05/28/25 @ 10:17 by Elma Bashir MD) Smoking Status: Never smoker Do you vape?: No Marital Status: Level: Independent Do you feel safe in your home environment?: Yes History of physical, verbal, emotional, or financial abuse?: No ETOH Use: None Substance Use: denies use 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 [employer]- [employer] Retired: No Service: Yes POLST Patient has POLST: No Meds/Allgy Home Medications Ambulatory Orders Medication Instructions Recorded Confirmed No Known Home Medications 11/28/2405/18 Allergies Allergies Allergy/AdvReac Type Severity Reaction Status Date / Time No Known Drug Allergies Allergy Verified 05/28/25 03:44 Results Lab Results 05/28/25 03:55 05/28/25 03:55 Other Lab Results: Lab Results x24hrs 05/28/25 05/28/25 Range/Units 06:46 03:55 WBC 7.0 (4.8-10.8) x10^3/uL RBC 5.29 (4.70-6.10) 10^6/uL Hgb 15.4 (14.0-18.0) g/dL Hct 46.0 (42.0-52.0) % MCV 87.0 (80.0-94.0) fL MCH 29.1 (27.0-31.0) pg MCHC 33.5 (32.0-36.0) g/dL RDW 12.4 (12.0-15.0) % Plt Count 182 (130-450) 10^3/uL MPV 11.2 (7.4-11.4) fL Neut # (Auto) 3.9 (1.5-6.6) 10^3/uL Lymph # (Auto) 2.6 (1.5-3.5) 10^3/uL Monroe # (Auto) 0.4 (0.0-1.0) 10^3/uL Eos # (Auto) 0.1 (0.0-0.7) 10^3/uL Baso # (Auto) 0.0 (0.0-0.1) 10^3/uL Absolute Nucleated RBC 0.00 x10^3/uL Nucleated RBC % 0.0 /100WBC Sodium 138 (135-145) mmol/L Potassium 3.0 L (3.5-4.5) mmol/L Chloride 106 (101-111) mmol/L Carbon Dioxide 18 L (21-32) mmol/L Anion Gap 14.0 H (6-13) BUN 9 (6-20) mg/dL Creatinine 1.0 (0.6-1.3) mg/dL Estimated GFR (MDRD) 90 (>89) Glucose 134 H (74-104) mg/dL Lactic Acid 0.9 (0.5-2.2) mmol/L Calcium 9.6 (8.5-10.3) mg/dL Total Bilirubin 0.7 (0.2-1.0) mg/dL AST 14 (10-42) IU/L ALT 9 L (10-60) IU/L Alkaline Phosphatase 71 (42-121) IU/L Total Protein 7.8 (6.4-8.9) g/dL Albumin 4.5 (3.2-5.5) g/dL Globulin 3.3 (2.1-4.2) g/dL Albumin/Globulin Ratio 1.4 (1.0-2.2) Lipase 16 (11-82) U/L Diagnostic Imaging Results Diagnostic Imaging Results: positive Final report reviewed and Read independently Diagnostic Imaging Results Comments: CT scan of the abdomen and pelvis done earlier today shows an incidental intestinal malrotation without signs of ischemia or inflammation. The patient's appendix appears normal. There is no free air. There is no free fluid. Review of Systems Status of ROS: 10 or more systems reviewed and unremarkable except as noted in history and below Exam Exam Vital Signs: Vital Signs x48h Temp Pulse Pulse Resp BP BP Pulse Ox 05/28/25 09:33 98.1 F 80 16 131/81 H 96 05/28/25 09:19 76 20 136/78 H 99 05/28/25 07:45 72 149/85 H 99 05/28/25 05:44 57 L 131/86 H 98 05/28/25 03:32 97.9 F 79 18 146/89 H 100 GEN: No acute distress, appears stated age, alert and oriented HEENT: NCAT, MMM, EOMI NEURO: CN II-XII grossly intact, no obvious focal deficits CV: RRR PULM: Nonlabored, on room air ABD: soft, nondistended, mild tenderness to palpation in the epigastrium and right mid abdomen, no rebound or guarding CIRCULATORY: no clubbing, cyanosis, or edema SKIN: no lesions appreciated LYMPH: no obvious lymphadenopathy MSK: 4/4 strength in all extremities PSYCH: Affect is appropriate Impression/Plan Problem List (1) Abdominal pain: Qualifiers: Abdominal location: multiple sites Qualified Code(s): R10.85 - Abdominal pain of multiple sites (2) Intestinal malrotation: (3) Constipation: Qualifiers: Constipation type: unspecified constipation type Qualified Code(s): K 59.00 - Constipation, unspecified Plan The patient's abdominal pain is of unclear etiology at this time. He had a similar episode of pain 2 weeks ago that improved significantly after stool softeners. His CT scan today again shows at least moderate constipation. I do not have his prior imaging to compare to. It is interesting that the patient has an incidental finding of malrotation, and questionable if the malrotation is symptomatic. Common symptoms include diarrhea which the patient does not have and intermittent abdominal pain which the patient describes over the last several weeks. In order to further differentiate his pain, I have ordered a small bowel follow-through study. This study can rule out obstruction and will improve the patient's stool burden. If he has normal small bowel follow-through and resolution of pain, we can discuss possible Milton's procedure during this hospital stay versus electively to eliminate malrotation as the source of his intermittent abdominal pain. If it is felt that his malrotation is truly incidental, Ramos's procedure may not be in his best interest as this is an involved surgery, and stands a greater than 50% chance of requiring an open laparotomy. The nature of the patient's pain is not consistent with other abdominal etiologies such as cholecystitis or appendicitis, and the patient's appendix is noted to appear normal on his CT scan. If the patient does undergo a Milton's procedure, appendectomy will be performed at that time. I have discussed the above reasoning and plan of care with the patient. He has voiced understanding, his questions were answered, and he is agreeable to proceed. He will be admitted under observation to the floor at this time.
[2025-05-28] MEDS ORDERED: DIATR MEGLU/DIATRIZOATE SODIUM 120 ML BOTTLE ONE (10:25)
--- NOTE | 2025-05-28 11:33 | PHARMACY PROGRESS NOTE ---
Best Possible Medication History Admit Date and Time: 05/28/25 0824 Home Medications Medication Instructions Recorded Confirmed Type No Known Home Medications 11/28/2405/18 History Processed by: Nursing Medications reviewed in ED?: Yes Medication History completed: Yes Patient Interview: Pt interview ONLY source BPM Statement: As the person ultimately responsible for medication therapy, providers are able to order a medication from an existing home medication list in [facility] via the "Reconcile Routine" prior to Confirmation of that medication by work station support specialist. Such practice is discouraged except when the physician, in their clinical judgment, deems that a medical need exists for a medication without regard to previous use.
[2025-05-28] MEDS: DIATR MEGLU/DIATRIZOATE SODIUM 120 ML BOTTLE PO ONE (12:24)
[2025-05-28 12:27] LABS: BUN - BLOOD UREA NITROGEN 8.0 mg/dL (6-20); CARBON DIOXIDE - CO2 28.0 mmol/L (21-32); CREATININE 1.1 mg/dL (0.6-1.3); GFR - MDRD 80.0 (>89)
[2025-05-28] MEDS: HYDROmorphone 0.5 MG/0.5 ML SYRINGE IVP PRN (14:47)
--- NOTE | 2025-05-28 17:36 | XRAY Report ---
PROCEDURE: XR SBFT Challenge Panel INDICATIONS: r/o volvulus COMPARISON: CT abdomen 05/28/2025 FINDINGS: KUB: Preprocedural nutrition and dietetics instructor film shows a nonspecific bowel gas pattern. No suspicious abdominal calcifications. Visualized solid organ contours appear normal in size. No suspicious bony abnormalities. Stomach: The gastric lumen is normally distensible, and has normal rugal fold thickness. No mucosal masses or ulcers. The pylorus and duodenal bulb have a normal morphology. Small bowel: Duodenal folds appear normal in thickness. There is normal transit time of barium through the small intestine. Small bowel loops appear normal in caliber throughout. Jejunal and ileal folds are smooth and normal in thickness. No strictures, intraluminal masses, or extrinsic mass effects. The terminal ileum is identified and appears normal. Contrast is identified within the colon. IMPRESSION: Nonobstructive gas pattern. No appearance of volvulus. Reviewed by: Bing Boo MD on 05/28/2025 5:33 PM PDT Approved by: Bing Boo MD on 05/28/2025 5:33 PM PDT Station ID: [id number]
--- NOTE | 2025-05-29 08:05 | PROVIDER PROGRESS NOTE ---
Subjective General Admit Date: 05/28/25 Other Other Information/Narrative: Pain improved from presentation but still c/o tenderness to palpation and worried pain will come back. No n/v. No f/c. No acute events overnight. Review of Systems Status of ROS: 10 or more systems reviewed and unremarkable except as noted in history and below Exam Exam Vital Signs: Vital Signs x48h Temp Pulse Resp BP BP Pulse Ox 05/29/25 08:44 98.2 F 66 16 110/67 98 05/29/25 06:20 97/48 L 05/29/25 05:31 77 91/44 L 92/45 L 05/29/25 05:11 97.9 F 72 18 91/47 L 98 GEN: No acute distress, alert and oriented HEENT: NCAT, MMM, EOMI CV: RRR PULM: Nonlabored, on room air ABD: soft, nondistended, mild tenderness to palpation in the right mid abdomen, no rebound or guarding CIRCULATORY: no clubbing, cyanosis, or edema Impression/Plan Problem List (1) Abdominal pain: Plan: improved Qualifiers: Abdominal location: multiple sites Qualified Code(s): R10.85 - Abdominal pain of multiple sites (2) Intestinal malrotation: Plan: SBFT shows no signs of obstruction/volvulus He does have intestinal malrotation I have discussed the risks, benefits, and alternatives of [place]'s procedure with the patient in detail. We discussed that this procedure stands a better than average chance of requiring a laparotomy to complete. We discussed risks including but not limited to bleeding, infection, damage to surrounding structures, and the possible need for further surgeries or procedures. An appendectomy will be performed as part of the procedure. The patient voiced understanding, his questions were answered, and he wished to proceed. A consent was signed by the patient prior to surgery. (3) Constipation: Plan: resolved with SBFT Qualifiers: Constipation type: unspecified constipation type Qualified Code(s): K59.00 - Constipation, unspecified Plan Plan to admit patient to inpatient status. He will discharge after surgery when his pain is controlled and he is tolerating a diet. I anticipate he may have delayed return of bowel function due to the amount of manipulation of bowel necessary for this procedure. I would like him to follow up with me in surgery clinic in two weeks.
[2025-05-29] MEDS ORDERED: fentaNYL 100 MCG/2 ML VIAL ONE ×4 (09:56→14:43)
[2025-05-29] MEDS ORDERED: MIDAZOLAM 2 MG/2 ML VIAL ONE (09:56)
[2025-05-29] MEDS ORDERED: PROPOFOL 200 MG/20 ML VIAL IVP ONE (10:04)
[2025-05-29] MEDS ORDERED: LIDOCAINE-PF 2% 10 ML AMP SUBQ ONE (10:04)
[2025-05-29] MEDS ORDERED: ROCURONIUM 50 MG/5 ML VIAL ONE ×3 (10:06→13:14)
--- NOTE | 2025-05-29 10:15 | ANESTHESIA PROCEDURE NOTE ---
Pre-Anesthesia VS, & Labs Diagnosis Surgical Diagnosis:: mallrotation of bowel Procedure Procedure: LADDs procedure, appendectomy Vitals Vital Signs: Temp Pulse Resp BP Pulse Ox 36.8 C 66 16 110/67 98 05/29/25 08:44 05/29/25 08:44 05/29/25 08:44 05/29/25 08:44 05/29/25 08:44 NPO NPO: >8 hours Lab Results Current Lab Results: Laboratory Tests 05/28/25 12:05: Sodium 141, Potassium 3.7, Chloride 107, Carbon Dioxide 28, Anion Gap 6.0, BUN 8, Creatinine 1.1, Estimated GFR (MDRD) 80 L, Glucose 98, Calcium 9.1 05/28/25 06:46: Lactic Acid 0.9 05/28/25 03:55: WBC 7.0, RBC 5.29, Hgb 15.4, Hct 46.0, MCV 87.0, MCH 29.1, MCHC 33.5, RDW 12.4, Plt Count 182, MPV 11.2, Neut # (Auto) 3.9, Lymph # (Auto) 2.6, Mathews # (Auto) 0.4, Eos # (Auto) 0.1, Baso # (Auto) 0.0, Absolute Nucleated RBC 0.00, Nucleated RBC % 0.0, Sodium 138, Potassium 3.0 L, Chloride 106, Carbon Dioxide 18 L, Anion Gap 14.0 H, BUN 9, Creatinine 1.0, Estimated GFR (MDRD) 90, Glucose 134 H, Calcium 9.6, Total Bilirubin 0.7, AST 14, ALT 9 L, Alkaline Phosphatase 71, Total Protein 7.8, Albumin 4.5, Globulin 3.3, Albumin/Globulin Ratio 1.4, Lipase 16 Lab results reviewed: Yes 05/28/25 03:55 05/28/25 12:05 Meds/Allgy Home Medications Ambulatory Orders Medication Instructions Recorded Confirmed No Known Home Medications 11/28/2405/18 Allergies Allergies Allergy/AdvReac Type Severity Reaction Status Date / Time No Known Drug Allergies Allergy Verified 05/28/25 03:44 PFSH Active Problems All Active Problems (Updated 05/28/25 @ 10:17 by Elma Bashir MD) Constipation (Chronic) Abdominal pain (Acute) Intestinal malrotation (Acute) Surgical History Surgical History (Updated 05/28/25 @ 10:17 by Elma Bashir MD) H/O thyroglossal duct cyst excised on above date Hx of tonsillectomy Family History Family History (Updated 05/28/25 @ 10:17 by Elma Bashir MD) Maternal grandmother Cancer Social History Social History (Updated 05/28/25 @ 10:17 by Elma Bashir MD) Smoking Status: Never smoker Do you vape?: No Marital Status: Level: Independent Do you feel safe in your home environment?: Yes History of physical, verbal, emotional, or financial abuse?: No ETOH Use: None Substance Use: denies use 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 [employer] 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 Service: Yes POLST Patient has POLST: No Anesthesia Exam (Expanded) Exam General: Alert, Oriented x3 and Cooperative Dental: WNL Mouth Openin Fingerbreadth Neck Mobility: Normal Mallampati classification: II Thyromental Distance: 4-6 cm Respiratory: Lungs clear, Normal breath sounds and No respiratory distress Cardiovascular: Regular rate Mental/Cognitive Status: Alert/Oriented X3 and Normal for patient Cognitive Status: Within normal limits Exam Exam Vital Signs: Vital Signs x48h Temp Pulse Resp BP BP Pulse Ox 05/29/25 08:44 36.8 C 66 16 110/67 98 05/29/25 06:20 97/48 L 05/29/25 05:31 77 91/44 L 92/45 L 05/29/25 05:11 36.6 C 72 18 91/47 L 98 Plan Problem List (1) Abdominal pain: Plan: improved Qualifiers: Abdominal location: multiple sites Qualified Code(s): R10.85 - Abdominal pain of multiple sites (2) Intestinal malrotation: Plan: SBFT shows no signs of obstruction/volvulus He does have intestinal malrotation I have discussed the risks, benefits, and alternatives of [place]'s procedure with the patient in detail. We discussed that this procedure stands a better than average chance of requiring a laparotomy to complete. We discussed risks including but not limited to bleeding, infection, damage to surrounding structures, and the possible need for further surgeries or procedures. An appendectomy will be performed as part of the procedure. The patient voiced understanding, his questions were answered, and he wished to proceed. A consent was signed by the patient prior to surgery. (3) Constipation: Plan: resolved with SBFT Qualifiers: Constipation type: unspecified constipation type Qualified Code(s): K 59.00 - Constipation, unspecified Plan Plan to admit patient to inpatient status. He will discharge after surgery when his pain is controlled and he is tolerating a diet. I anticipate he may have delayed return of bowel function due to the amount of manipulation of bowel necessary for this procedure. I would like him to follow up with me in surgery clinic in two weeks. Plan Anesthesia Type: General and Transverse Abdominis Plane (TAP) Block (possible) Regional Block: Per Surgeon's request for Post Op pain control Consent for Procedure(s) Verified and Reviewed: Yes Code Status: Attempt Resuscitation ASA Classification ASA classification: 2-Mild systemic disease Is this case an emergency?: No
[2025-05-29] MEDS ORDERED: LIDOCAINE 1%-EPI 1:100000 20 ML MDV ONE (10:31)
[2025-05-29] MEDS ORDERED: BUPIVACAINE 0.5% PF 10 ML VIAL ONE (10:31)
[2025-05-29] MEDS ORDERED: ONDANSETRON 4 MG/2 ML VIAL ONE (11:22)
[2025-05-29] MEDS ORDERED: DEXAMETHASONE 4 MG/ML VIAL ONE (11:22)
[2025-05-29] MEDS ORDERED: ACETAMINOPHEN 1,000 MG/100 ML 1,000 MG/100 ML BAG IV ONE (11:50)
[2025-05-29] MEDS ORDERED: SODIUM CHLORIDE 0.9% 10 ML VIAL ONE (11:53)
[2025-05-29] MEDS ORDERED: ePHEDrine 50 MG/ML VIAL IVP ONE (11:53)
[2025-05-29] MEDS ORDERED: SEVOFLURANE 250 ML LIQUID INH ONE (11:57)
[2025-05-29] MEDS ORDERED: HYDROmorphone 1 MG/ML CARPUJECT ONE ×2 (12:39→14:53)
[2025-05-29] MEDS ORDERED: ATROPINE ABBOJECT 1 MG/10 ML SYRINGE IVP PRN (13:10)
[2025-05-29] MEDS ORDERED: METOCLOPRAMIDE 10 MG/2 ML VIAL IVP PRN (13:10)
[2025-05-29] MEDS ORDERED: NALOXONE 0.4 MG/ML VIAL IVP PRN (13:10)
[2025-05-29] MEDS ORDERED: ONDANSETRON 4 MG/2 ML VIAL IVP PRN (13:10)
[2025-05-29] MEDS ORDERED: ePHEDrine 50 MG/ML VIAL IVP PRN (13:10)
[2025-05-29] MEDS ORDERED: MORPHINE 2 MG/ML CARPUJECT IVP PRN (13:10)
[2025-05-29] MEDS ORDERED: SUGAMMADEX 200 MG/2 ML VIAL IVP ONE (13:24)
[2025-05-29] MEDS ORDERED: KETOROLAC 30 MG/ML VIAL ONE (13:40)
--- NOTE | 2025-05-29 14:43 | OPERATIVE REPORT ---
Operative Report General Admit Date: 05/28/25 Procedure Data: Operation Date: 05/29/25 10:30 Proposed Procedures p Diagnostic Laparoscopy(Not Applicable) - Elma Bashir MD Actual Procedures p Laparoscopic Appendectomy CONVERTED TO OPEN RAMOS'S PROCEDURE(Not Applicable) - Elma Bashir MD Pre-Op Diagnosis: MALROTATION Anesthesia Type General Case Staff Anesthesia Provider: Conrado Ceballos Assisting Provider: Heriberto Wetzel Case Times Into Recovery: 05/29/25 14:17 Procedure Start: 05/29/25 11:39 Procedure End: 05/29/25 14:12 Pre-Op Diagnosis: intestinal malrotation Post Op Diagnosis: intestinal malrotation Procedure Note Intake, IV Amount (ml): 1,700 Estimated Blood Loss (ml): 100 Output, Urine Amount (ml): 400 Pathology: omentum/small bowel cocoon Indications: This is a very pleasant 29-year-old gentleman whose had intermittent abdominal pain for the last month. He was diagnosed with incidental intestinal malrotation at the time of his first presentation, but with worsening symptoms on his second presentation, he was admitted. Imaging confirmed that no volvulus was present. I discussion was had with the patient regarding the risks, benefits, and alternatives of surgery including but not limited to bleeding, infection, damage to surrounding structures, need for further surgeries or procedures. The patient voiced understanding, his questions were answered, and he wished to proceed. A consent was signed by the patient prior to surgery. Findings: 1. small bowel encased in omentum 2. Melbourne's bands divided 3. appendectomy performed Complications: none Other Other Information/Narrative: The patient was brought to the operative suite and placed in the supine position. General endotracheal anesthesia was induced. A Horne catheter was placed. Preoperative antibiotics were given. A preop surgical timeout was performed. Due to the surgical complexity of this case, I asked my partner Dr. Heriberto Wetzel to assist. He assisted with retraction, maintaining hemostasis, and identification of abnormal structures. Local anesthetic was injected into the skin and subcutaneous tissues just superior to the umbilicus. An 11 blade scalpel was used to make a 10 mm longitudinal skin incision in this location. Next, a hemostat was used to spread the tissues down to the level of the fascia and a Joe clamp was used to grasp and elevate the umbilical stalk. A Varess needle was used to gain access to the peritoneal space. Low flow insufflation revealed low pressures and then high flow insufflation was undertaken to 15 mmHg. Next, the Varess needle was removed and a 5 mm laparoscopic port was inserted in this location. Through this port, a 5 mm 30 degree laparoscope was inserted. On inspection of the abdomen no injury was caused on entry. Next, the patient was placed in Trendelenburg and rotated slightly to the left. 2 more ports were inserted. A 5 mm port was inserted in the suprapubic region, and a 5 mm port was inserted in the left lower quadrant. Both ports were placed by first anesthetizing the skin and subcutaneous tissues with local anesthetic, then by making an appropriate length incision with an 11 blade scalpel, and finally by placing the port under direct laparoscopic vision. Once these 2 ports were placed, the supraumbilical port was upsized to a 12 mm port. This was done under direct laparoscopic vision. Once the ports were in place, 2 atraumatic graspers were used to identify the area of concern. The small bowel was noted to be encased in a cocoon of peritoneum that appeared contiguous with the omentum. The bowel was retracted toward the left upper quadrant as much as possible to take down Ramos's bands along the lateral sidewall. This was done with blunt and sharp dissection with LigaSure energy device. The small bowel was run to the terminal ileum as the colon was difficult to identify. It was not in the characteristic right upper quadrant location described in the literature for patients with malrotation. Instead, it was located near the midline. The cecum was identified and lateral attachments were taken down again with blunt and sharp dissection with LigaSure. The appendix was identified and isolated from surrounding structures very carefully, taking great care to stay close to the appendix. Then, the base of t he appendix was divided with the stapler, using a blue load. Great care was taken to ensure that only the base of the appendix was within the jaws of the stapler and then it was fired. The staple line was inspected and noted to be hemostatic. Next, we attempted to mobilize the cecum, but there were medial retroperitoneal attachments prohibiting appropriate visualization and mobilization. At this time, we decided to convert to open for better visualization. A midline incision was made from the umbilicus approximately 10 cm cephalad. The incision was made with a 10 blade scalpel and carried down through the skin and subcutaneous tissues with sharp dissection with electrocautery taking great care to maintain hemostasis. The fascia was incised starting at the periumbilical incision and working cephalad great care was taken to incise the peritoneum and not damaging the intra-abdominal contents. A large Dion O wound protector was placed. Next, the small bowel was run from the terminal ileum proximal to the duodenum. Several additional Melbourne's bands were identified and divided, taking great care not to cauterize through any tissue we cannot easily see through. The cocoon like structure was identified and followed toward the retroperitoneum. This was located in the same place where the terminal ileum and cecum were heavily tethered to the retroperitoneum. Great care was taken to divide the Melbourne's bands in this location. Releasing these bands also widened the mesenteric root. Dividing this band also freed the cocoon and it was fully excised. The colon then easily sat in the left side of the abdomen and the small bowel sat in the right side of the abdomen. The small bowel was then run from the distal terminal ileum, proximal to the duodenum. The mesentery was not kinked in any location and there were no signs of mesenteric engorgement. There were no signs of volvulus at this time. The abdomen was irrigated with warm normal saline and hemostasis was confirmed. Next, the fascia was closed starting at the inferior and superior aspects of the midline incision in a running fashion taking small bites and small advances with 2-0 PDS. The subcutaneous tissue was closed with 0 Vicryl in an interrupted fashion. The laparoscopic incisions were closed with 4-0 Monocryl in an interrupted subcuticular fashion. The midline incision was closed with 4-0 Monocryl in a running subcuticular fashion. A sterile dressing of Dermabond was placed. The patient was extubated in the operating room and transferred to the recovery room in stable condition. There were no complications. The Horne was removed at the end of the surgery.
[2025-05-29] MEDS: HYDROmorphone 0.5 MG/0.5 ML SYRINGE IVP PRN ×2 (14:58→17:36)
[2025-05-29] MEDS: fentaNYL 100 MCG/2 ML VIAL IVP PRN (15:07)
[2025-05-29] MEDS: LACTATED RINGERS 1,000 ML IV SCH ×2 (16:11→18:24)
[2025-05-29] MEDS: ACETAMINOPHEN 325 MG TABLET PO SCH (16:18)
--- NOTE | 2025-05-29 17:20 | ANESTHESIA POST OP EVALUATION ---
Anesthesia Post Eval Post Anesthesia Eval Vitals: Last Vital Signs Temp 36.6 C 05/29/25 15:30 Pulse 79 05/29/25 15:30 Resp 18 05/29/25 15:30 BP 157/86 H 05/29/25 15:30 Pulse Ox 100 05/29/25 15:30 CV Function Including HR & BP: Stable Pain Control: Satisfactory Nausea & Vomiting: Negative Mental Status: Baseline Respiratory Status: Airway Patent Hydration Status: Satisfactory Anesthesia Complications: None
[2025-05-29] MEDS: ONDANSETRON 4 MG/2 ML VIAL IVP PRN (19:39)
[2025-05-29] MEDS: TAMSULOSIN 0.4 MG CAPSULE PO ONE (19:44)
[2025-05-29] MEDS: KETOROLAC 15 MG/ML VIAL IVP PRN (20:20)
[2025-05-29] MEDS: METOCLOPRAMIDE 10 MG/2 ML VIAL IVP PRN (20:54)
[2025-05-30 05:36] LABS: HCT - HEMATOCRIT 41.2 % (42.0-52.0); HGB - HEMOGLOBIN 13.5 g/dL (14.0-18.0); MEAN PLATELET VOLUME 11.3 fL (7.4-11.4); NRBC ABSOLUTE COUNT (AUTO) 0.00 x10^3/uL; NUCLEATED RED BLOOD CELLS AUTO 0.0 /100WBC; PLT - PLATELET COUNT 153 10^3/uL (130-450); RED CELL DISTRIBUTION WIDTH 12.3 % (12.0-15.0)
[2025-05-30 05:52] LABS: BUN - BLOOD UREA NITROGEN 6.0 mg/dL (6-20); CARBON DIOXIDE - CO2 27.0 mmol/L (21-32); CREATININE 1.0 mg/dL (0.6-1.3); GFR - MDRD 90.0 (>89)
--- NOTE | 2025-05-30 06:51 | PROVIDER PROGRESS NOTE ---
Subjective General Admit Date: 05/28/25 Procedure Date: 05/29/25 Post Op Days: 1 Procedure Performed: [place]'s procedure with appendectomy (laparoscopic converted to open) Other Other Information/Narrative: Patient had urinary retention requiring straight cath x1 last night. He has voided several times since then. Patient states he is having a lot of incisional pain this morning and that it's controlled with pain medication. Some heartburn/burping overnight, tolerating clears. Review of Systems Status of ROS: 10 or more systems reviewed and unremarkable except as noted in history and below Exam Exam Vital Signs: Vital Signs x48h Temp Pulse Resp BP BP Pulse Ox O2 Flow Rate 05/30/25 08:06 98.6 F 84 16 117/67 97 05/30/25 05:24 98.1 F 78 16 119/63 97 1 05/30/25 00:56 1 GEN: No acute distress, alert and oriented HEENT: NCAT, MMM, EOMI CV: RRR PULM: Nonlabored, on room air ABD: soft, nondistended, appropriate incisional tenderness to palpation, no rebound or guarding, incisions c/d/i with dermabond in place CIRCULATORY: no clubbing, cyanosis, or edema Impression/Plan Problem List (1) Intestinal malrotation: Plan: s/p [place]'s procedure (lap converted to open), POD#1 - pain controlled with multimodal pain meds, toradol changed to scheduled, added gabapentin - added pepcid for reflux - will consider adat later today if tolerating clears (2) Urinary retention: Plan: resolved straight cath x1 last night likely 2/2 anesthesia patient given one dose flomax last night (3) Constipation: Plan: resolved with SBFT Qualifiers: Constipation type: unspecified constipation type Qualified Code(s): K59.00 - Constipation, unspecified Plan Inpatient floor status He will discharge when his pain is controlled and he is tolerating a diet. I anticipate he may have delayed return of bowel function due to the amount of manipulation of bowel necessary for this procedure. I would like him to follow up with me in surgery clinic in two weeks.
[2025-05-30] MEDS: ENOXAPARIN 40 MG/0.4 ML SYRINGE SUBQ SCH (08:17)
[2025-05-30] MEDS: FAMOTIDINE 20 MG TABLET PO SCH (08:17)
[2025-05-30] MEDS: GABAPENTIN 300 MG CAPSULE PO SCH (11:36)
[2025-05-30] MEDS: KETOROLAC 15 MG/ML VIAL IVP SCH (13:48)
--- NOTE | 2025-05-31 06:50 | PROVIDER PROGRESS NOTE ---
Subjective General Admit Date: 05/30/25 Procedure Date: 05/29/25 Post Op Days: 2 Procedure Performed: [place]'s procedure with appendectomy (laparoscopic converted to open) Other Other Information/Narrative: Pain controlled with PO and IV meds. Tolerating regular diet. No n/v. +flatus +ambulation Review of Systems Status of ROS: 10 or more systems reviewed and unremarkable except as noted in history and below Exam Exam Vital Signs: Vital Signs x48h Temp Pulse Resp BP Pulse Ox 05/31/25 00:04 98.6 F 93 18 136/87 H 100 GEN: No acute distress, alert and oriented HEENT: NCAT, MMM, EOMI CV: RRR PULM: Nonlabored, on room air ABD: soft, nondistended, appropriate incisional tenderness to palpation, no rebound or guarding, incisions c/d/i with dermabond in place CIRCULATORY: no clubbing, cyanosis, or edema Impression/Plan Problem List (1) Intestinal malrotation: Plan: s/p [place]'s procedure (lap converted to open), POD#2 - pain controlled with multimodal pain meds, toradol changed to scheduled, added gabapentin - added oxycodone, stopped dilaudid - on pepcid - tolerating regular diet (2) Urinary retention: Plan: resolved (3) Constipation: Plan: resolved with SBFT Qualifiers: Constipation type: unspecified constipation type Qualified Code(s): K59.00 - Constipation, unspecified Plan Inpatient floor status If his pain is controlled with oral medication, likely discharge to home later today. I would like him to follow up with me in surgery clinic in two weeks.
[2025-05-31] MEDS: oxyCODONE 5 MG TABLET PO PRN (10:23)
--- NOTE | 2025-05-31 12:04 | Discharge Summary ---
"Discharge Summary Admit Date: 05/28/25 Discharge Date: 05/31/25 Discharging Provider: Mckay Primary Care Provider: Code Status: Attempt Resuscitation Discharge Facility Name: to home DIAGNOSES Admission Diagnoses: intestinal malrotation abdominal pain Discharge Diagnoses with Status of Each Condition: intestinal malrotation, resolved s/p ex lap, stable and improving urinary retention, resolved HPI History of Present Illness: Lloyd Cooper is a 29 y/o M. 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 He reports acute onset crampy abdominal pain which moves around is abdomen and began at 0130 the morning of presentation, while he was at work. The pain became severe and was associated with nausea but no vomiting, prompting the patient to call 911. He received 50 mcg of fentanyl en route to the hospital, and additional narcotics in the ED which controlled his pain. He reports a similar episode of pain about 2 weeks ago at which time he was seen at [facility] and diagnosed with constipation. He states that he took some laxative and stool softener and had improvement of symptioms; he has not continued on a bowel regimen. Workup in the ED reveals moderate constipation and malrotation which is incidental in nature. For this, he was admitted to the hospital. At the time of my exam, the patient is resting comfortably, aside from some pain in his IV arm with infusion of potassium. He states he has some mild abdominal discomfort, rated 4/10. It is mostly about the right mid abdomen at this moment but patient endorses that pain has moved around during the time it has been present. Prior to two weeks ago, he has never had pain like this. He has no prior abdominal surgeries. CONSULTS | PROCEDURES Consultations: none Procedures: Ramos's procedure with appendectomy (lap converted to open) HOSPITAL COURSE Hospital Course: The patient was admitted and given gastrograffin SBFT. This resolved his constipation but did not resolve his abodominal pain. Due to concern for crescendoing symptoms, and apparent intestinal malrotation on his CT and further imaging studies, we discussed elective Ramos's procedure. We discussed the risks, benefits, and alternatives of this procedure. The patient voiced understanding, his questions were answered, and he wished to proceed. Consent was signed and he was taken to the operating room for this procedure. We started laparoscopically but due to poor visualization did have to convert to open. Postoperatively, the patient did well. He had some urinary retention that resolved within 24 hours. His diet was slowly advanced which he tolerated well. At this time, his pain is well-controlled on oral pain medication and he is appropriate for discharge to home. ALLERGIES Allergies Allergy/AdvReac Type Severity Reaction Status Date / Time No Known Drug Allergies Allergy Verified 05/28/25 03:44 MEDICATIONS Ambulatory Orders Medication Instructions Recorded Confirmed acetaminophen 325 mg capsule 650 mg (2 x 325 mg) PO Q4 H #30 caps 05/31/25 gabapentin 300 mg capsule 300 mg PO TID #21 caps 05/31 ibuprofen 200 mg capsule 600 mg (3 x 200 mg) PO TID # 60 caps 05/31/25 oxycodone 5 mg tablet 5 mg PO Q4H PRN Pain >8 #15 tabs 05/31/25 polyethylene glycol 3350 17 17 g PO DAILY #238 grams 1 gram/dose oral powder PHYSICAL EXAM AT DISCHARGE Vital Signs: Vital Signs x48h Temp Pulse Resp BP Pulse Ox 05/31/25 10:07 98.6 F 94 20 117/76 97 General Appearance: positive No acute distress Eyes Bilateral: positive Normal inspection ENT: positive ENT inspection nml Respiratory: positive No respiratory distress Cardiovascular: positive Regular rate & rhythm Abdomen: positive Tenderness (Appropriate postoperative tenderness to palpation) Skin: positive Color nml and No rash Extremities: positive Non-tender and Full ROM Neurologic/Psychiatric: positive Oriented x3 LABS 05/30/25 05:25 05/30/25 05:25 FOLLOW UP Follow Up: The patient is going to follow-up with me on June 08 at 8:45 AM. TIME SPENT Time Spent in Discharge (Minutes): 47 Discharge Plan Discharge Patient Disposition: Home, Self Care Condition: Good Medically Cleared Date:: 05/31/25 Prescriptions: New gabapentin 300 mg Capsule 300 mg PO TID Qty: 21 0RF ibuprofen 200 mg capsule 600 mg PO TID Qty: 60 2RF polyethylene glycol 3350 17 gram/dose powder 17 g PO DAILY Qty: 238 0RF Rx Instructions: use while taking narcotic pain medication. Ok to obtain OTC. oxycodone 5 mg tablet 5 mg PO Q4H PRN (Reason: Pain >8) Qty: 15 0RF Rx Instructions: Do not drive while taking this medication. Take stool softener while taking this medication. acetaminophen 325 mg capsule 650 mg PO Q4H Qty: 30 0RF Activity Restrictions: see below Activity Restrictions/Additional Instructions: DIET - You may resume your normal diet if there is no nausea or vomiting. You may want to avoid spicy, greasy, or heavy foods today to minimize gas. - If nausea or vomiting occurs, don't eat or drink anything for one hour. Then start drinking small amounts of clear liquids. Later, add crackers, gradually building up to your usual diet. ACTIVITY INSTRUCTIONS * Ambulate daily * May climb stairs * No lifting more than 20 lbs for 6 weeks. DRESSING CARE * Leave Dermabond on incisions until it falls off, ok to trim edges if it peels * May shower and gently wash incisions with soap and water * Do not immerse incisions in bath. * No swimming ADDITIONAL DISCHARGE INSTRUCTIONS Apply ice to the incisions as often as tolerated for at least 72 hours, 15 min on, 20 min off. This will help with pain and bruising and swelling. MEDICATIONS * Take ibuprofen and Tylenol as needed for pain, AND use oxycodone as needed for pain not controlled with ibuprofen and Tylenol; may take both meds together. * Use stool softener daily while taking narcotic pain meds. ANESTHESIA PRECAUTIONS Anesthesia and medications given during surgery remain in your body up to 24 hours. This may slow reaction time and/or decrease coordination. FOR THE NEXT 24 HOURS: - Have a responsible person with you - Avoid any activity that requires you to be alert and coordinated - DO NOT DRIVE a motor vehicle for 24 hours or as long as you are taking opioid pain medication - Do not drink alcoholic beverages - Do not smoke unattended Patient Date Escort Date RN Date Plan of Treatment: Continue to increase activity, with restrictions as listed above. Follow up with Dr. Bashir in two weeks. Print Language: [place] Patient Instructions: Surg Dc Stand Alone Forms: PCP List Follow-up Care: Elma Bashir MD [Provider Admit Priv/Credential, Surgery, General] - 06/08/25 8:45 am Vitals documented within 30 minutes of discharge?: Yes"
[2025-05-31 12:47] VITALS: BP 133/73; TEMP 98.2; O2SAT 94
== END 2025-05-31 12:48 | disposition home or self-care (01) | DRG 331 ==
LOC: MS2 03:32 → ED 03:32 → MS2 09:31
PROVIDERS: ADMIT Surgery; ATTEND Surgery